=== PATIENT | male | born 1970 | race Caucasian/White ===

== ENCOUNTER 2021-11-01 11:51 | Inpatient (IN) | payer OTHER ==
[2021-11-01] MEDS ORDERED: IBUPROFEN 400 MG TABLET (FP) PO PRN (13:04)
[2021-11-01] MEDS ORDERED: METHOCARBAMOL 500 MG TABLET PO PRN (13:04)
[2021-11-01] MEDS ORDERED: NALOXONE HCL 0.4 MG/ML VIAL IM PRN (13:04)
[2021-11-01] MEDS ORDERED: cloNIDine HCL 0.1 MG TABLET PO PRN (13:04)
[2021-11-01] MEDS ORDERED: ACETAMINOPHEN 325 MG TABLET (FP) PO PRN (13:04)
[2021-11-01] MEDS ORDERED: MAGNESIUM CITRATE 300 ML BOTTLE PO PRN (13:04)
[2021-11-01] MEDS ORDERED: BISMUTH SUBSALICYLATE 524 MG/30 ML PO PRN (13:04)
[2021-11-01] MEDS ORDERED: MAG HYDROX/AL HYDROX/SIMETH 30 ML UNIT-DOSE CUP PO PRN (13:04)
[2021-11-01] MEDS ORDERED: LOPERAMIDE HCL 2 MG CAPSULE PO PRN (13:04)
[2021-11-01] MEDS ORDERED: MENTHOL/PHENOL 1 EACH UD MM PRN (13:04)
[2021-11-01] MEDS ORDERED: ONDANSETRON *ODT* 4 MG TABLET SL PRN (13:04)
[2021-11-01] MEDS ORDERED: DICYCLOMINE HCL 10 MG CAPSULE PO PRN (13:04)
[2021-11-01] MEDS ORDERED: methaDONE HCL 10 MG TABLET (FOR DETOX USE ONLY) PO ONE (13:30)
[2021-11-01 13:54] VITALS: BMI 27.3
[2021-11-01] MEDS: diazePAM 5 MG TABLET PO SCH ×2 (17:52→22:51)
[2021-11-01] MEDS: NICOTINE 10 MG CARTRIDGE (INHALER) IH PRN (17:54)
[2021-11-01] MEDS: NICOTINE 14 MG/24 HOURS TOPICAL PATCH TD SCH (17:58)
[2021-11-01] MEDS: BENZOCAINE 20 % GEL TUBE MM SCH ×2 (17:58→21:00)
[2021-11-01] MEDS: PRENATAL VITAMINS W/ FOLIC ACID TABLET (FP) PO SCH (17:58)
[2021-11-01] MEDS: hydrOXYzine PAMOATE 25 MG CAPSULE (FP) PO SCH ×3 (17:59→22:51)
[2021-11-01] MEDS: FLUTICASONE PROP 0.05% 16 GM NASAL SPRAY NS SCH (22:50)
[2021-11-01] MEDS: THIAMINE HCL 100 MG TABLET (FP) PO SCH (22:51)
[2021-11-01] MEDS: MELATONIN 5 MG TABLETS PO SCH (22:51)
[2021-11-02] MEDS: hydrOXYzine PAMOATE 25 MG CAPSULE (FP) PO SCH ×5 (06:05→22:57)
[2021-11-02] MEDS: diazePAM 5 MG TABLET PO SCH ×4 (06:05→22:57)
[2021-11-02] MEDS: BENZOCAINE 20 % GEL TUBE MM SCH ×4 (08:20→21:00)
[2021-11-02] MEDS ORDERED: methaDONE HCL 10 MG TABLET (FOR DETOX USE ONLY) ONE (08:54)
[2021-11-02 09:30] LABS: HEMATOCRIT 40.2 % (35.4-49); HEMOGLOBIN 13.3 GM/dL (11.7-16.9); MCH 28.7 pg (25.7-33.7); MCHC 33.2 g/dl (32.0-35.9); MEAN CELL VOLUME 86.5 fl (80-96); MEAN PLT VOLUME 8.8 fl (7.5-11.1); PLATELET COUNT 279 10^3/uL (134-434); RBC 4.65 M/mm3 (4.00-5.60); RDW 14.9 % (11.9-15.9); WHITE BLOOD COUNT 6.6 K/mm3 (4.0-10.0)
[2021-11-02 09:39] LABS: ALBUMIN 3.4 g/dl (3.4-5.0)
[2021-11-02 09:40] LABS: CALCIUM 8.8 mg/dL (8.5-10.1)
[2021-11-02 09:42] LABS: BLOOD UREA NITROGEN 7.7 mg/dL (7-18); CREATININE 0.8 mg/dL (0.55-1.3)
[2021-11-02 09:44] LABS: BILIRUBIN,TOTAL 0.2 mg/dL (0.2-1); TOT PROT 6.6 g/dl (6.4-8.2)
[2021-11-02] MEDS: FLUTICASONE PROP 0.05% 16 GM NASAL SPRAY NS SCH ×2 (10:31→22:56)
[2021-11-02] MEDS: PRENATAL VITAMINS W/ FOLIC ACID TABLET (FP) PO SCH (10:32)
[2021-11-02] MEDS: NICOTINE 14 MG/24 HOURS TOPICAL PATCH TD SCH (10:34)
[2021-11-02] MEDS: ALBUTEROL SO4 HFA INHALER IH PRN (12:32)
[2021-11-02] MEDS: THIAMINE HCL 100 MG TABLET (FP) PO SCH (22:57)
[2021-11-02] MEDS: MELATONIN 5 MG TABLETS PO SCH (22:57)
[2021-11-03] MEDS: BENZOCAINE 20 % GEL TUBE MM SCH ×4 (02:45→21:02)
[2021-11-03] MEDS: diazePAM 5 MG TABLET PO SCH ×3 (05:39→23:03)
[2021-11-03] MEDS: hydrOXYzine PAMOATE 25 MG CAPSULE (FP) PO SCH ×5 (05:39→23:03)
[2021-11-03] MEDS: ALBUTEROL SO4 HFA INHALER IH PRN ×3 (05:41→17:59)
[2021-11-03] MEDS ORDERED: methaDONE HCL 10 MG TABLET (FOR DETOX USE ONLY) PO ONE (10:00)
[2021-11-03] MEDS: FLUTICASONE PROP 0.05% 16 GM NASAL SPRAY NS SCH ×2 (10:18→23:02)
[2021-11-03] MEDS: PRENATAL VITAMINS W/ FOLIC ACID TABLET (FP) PO SCH (10:18)
[2021-11-03] MEDS: diazePAM 5 MG TABLET PO PRN ×2 (10:21→17:57)
[2021-11-03] MEDS: MAGNESIUM HYDROX 2400MG/30ML ORAL SUSPENSION 30 ML CUP PO PRN (10:21)
[2021-11-03] MEDS: NICOTINE 14 MG/24 HOURS TOPICAL PATCH TD SCH (10:24)
[2021-11-03 12:08] LABS: URINE APPEARANCE CLEAR; URINE BILIRUBIN NEGATIVE (NEGATIVE); URINE COLOR YELLOW; URINE GLUCOSE (UA) NEGATIVE (NEGATIVE); URINE KETONE NEGATIVE (NEGATIVE); URINE LEUK ESTERASE NEGATIVE (NEGATIVE); URINE NITRITE NEGATIVE (NEGATIVE); URINE PROTEIN NEGATIVE (NEGATIVE); URINE UROBILINOGEN 0.2 mg/dL (0.2-1.0)
[2021-11-03] MEDS: MELATONIN 5 MG TABLETS PO SCH (23:03)
[2021-11-03] MEDS: THIAMINE HCL 100 MG TABLET (FP) PO SCH (23:03)
[2021-11-04] MEDS: diazePAM 5 MG TABLET PO PRN ×2 (03:28→10:20)
[2021-11-04] MEDS: diazePAM 5 MG TABLET PO SCH ×2 (05:16→17:55)
[2021-11-04] MEDS: hydrOXYzine PAMOATE 25 MG CAPSULE (FP) PO SCH ×5 (05:16→22:09)
[2021-11-04] MEDS: BENZOCAINE 20 % GEL TUBE MM SCH ×4 (05:18→23:02)
[2021-11-04] MEDS: ACETAMINOPHEN 325 MG TABLET (FP) PO PRN ×2 (05:19→22:11)
[2021-11-04] MEDS ORDERED: methaDONE HCL 10 MG TABLET (FOR DETOX USE ONLY) ONE (09:16)
[2021-11-04] MEDS: FLUTICASONE PROP 0.05% 16 GM NASAL SPRAY NS SCH ×2 (10:16→22:09)
[2021-11-04] MEDS: NICOTINE 14 MG/24 HOURS TOPICAL PATCH TD SCH (10:17)
[2021-11-04] MEDS: ALBUTEROL SO4 HFA INHALER IH PRN ×2 (10:19→17:57)
[2021-11-04] MEDS: PRENATAL VITAMINS W/ FOLIC ACID TABLET (FP) PO SCH (10:20)
[2021-11-04] MEDS: THIAMINE HCL 100 MG TABLET (FP) PO SCH (22:09)
[2021-11-04] MEDS: MELATONIN 5 MG TABLETS PO SCH (22:09)
[2021-11-05] MEDS ORDERED: diazePAM 5 MG TABLET PO ONE ×2 (06:00→18:00)
[2021-11-05] MEDS: BENZOCAINE 20 % GEL TUBE MM SCH ×4 (06:52→21:39)
[2021-11-05] MEDS: hydrOXYzine PAMOATE 25 MG CAPSULE (FP) PO SCH ×5 (06:52→22:34)
[2021-11-05] MEDS ORDERED: methaDONE HCL 10 MG TABLET (FOR DETOX USE ONLY) PO ONE (10:00)
[2021-11-05] MEDS: PRENATAL VITAMINS W/ FOLIC ACID TABLET (FP) PO SCH (11:26)
[2021-11-05] MEDS: FLUTICASONE PROP 0.05% 16 GM NASAL SPRAY NS SCH ×2 (11:27→22:35)
[2021-11-05] MEDS: NICOTINE 14 MG/24 HOURS TOPICAL PATCH TD SCH (11:27)
[2021-11-05] MEDS: ACETAMINOPHEN 325 MG TABLET (FP) PO PRN (11:36)
[2021-11-05] MEDS ORDERED: TRIMETHOBENZAMIDE HCL 200MG/2ML INJ IM PRN (13:31)
[2021-11-05] MEDS ORDERED: cloNIDine HCL 0.1 MG TABLET PO ONE (14:45)
[2021-11-05] MEDS ORDERED: hydrOXYzine PAMOATE 50 MG CAPSULE (FP) PO ONE (14:46)
[2021-11-05] MEDS ORDERED: hydrOXYzine PAMOATE 25 MG CAPSULE (FP) PO PRN (22:00)
[2021-11-05] MEDS: MELATONIN 5 MG TABLETS PO SCH (22:33)
[2021-11-05] MEDS: THIAMINE HCL 100 MG TABLET (FP) PO SCH (22:34)
[2021-11-06] MEDS: BENZOCAINE 20 % GEL TUBE MM SCH ×2 (07:17→09:23)
[2021-11-06] MEDS: hydrOXYzine PAMOATE 25 MG CAPSULE (FP) PO SCH ×5 (07:18→22:13)
[2021-11-06] MEDS ORDERED: methaDONE HCL 10 MG TABLET (FOR DETOX USE ONLY) PO ONE (10:00)
[2021-11-06] MEDS: PRENATAL VITAMINS W/ FOLIC ACID TABLET (FP) PO SCH (10:19)
[2021-11-06] MEDS: diazePAM 5 MG TABLET PO SCH ×2 (10:20→22:12)
[2021-11-06] MEDS: NICOTINE 14 MG/24 HOURS TOPICAL PATCH TD SCH (10:21)
[2021-11-06] MEDS: FLUTICASONE PROP 0.05% 16 GM NASAL SPRAY NS SCH ×2 (10:24→22:14)
[2021-11-06 12:29] LABS: CALCIUM 8.8 mg/dL (8.5-10.1)
[2021-11-06 12:30] LABS: BLOOD UREA NITROGEN 14.7 mg/dL (7-18)
[2021-11-06 12:33] LABS: CREATININE 0.9 mg/dL (0.55-1.3)
[2021-11-06 15:07] LABS: SARS-CoV-2 NAA Not Detected (Not Detected)
[2021-11-06] MEDS ORDERED: diazePAM 5 MG TABLET PO SCH (22:00)
[2021-11-06] MEDS: THIAMINE HCL 100 MG TABLET (FP) PO SCH (22:13)
[2021-11-06] MEDS: MELATONIN 5 MG TABLETS PO SCH (22:13)
[2021-11-07] MEDS: hydrOXYzine PAMOATE 25 MG CAPSULE (FP) PO SCH ×2 (05:22→10:14)
[2021-11-07] MEDS ORDERED: diazePAM 5 MG TABLET PO ONE (06:00)
[2021-11-07] MEDS: FLUTICASONE PROP 0.05% 16 GM NASAL SPRAY NS SCH ×2 (10:14→21:08)
[2021-11-07] MEDS: PRENATAL VITAMINS W/ FOLIC ACID TABLET (FP) PO SCH (10:14)
[2021-11-07] MEDS: NICOTINE 14 MG/24 HOURS TOPICAL PATCH TD SCH (10:15)
[2021-11-07] MEDS: THIAMINE HCL 100 MG TABLET (FP) PO SCH (21:06)
[2021-11-07] MEDS: MELATONIN 5 MG TABLETS PO SCH (21:06)
[2021-11-07] MEDS: cloNIDine HCL 0.1 MG TABLET PO PRN (21:07)
[2021-11-07] MEDS: ALBUTEROL SO4 HFA INHALER IH PRN (21:09)
[2021-11-08] MEDS: FLUTICASONE PROP 0.05% 16 GM NASAL SPRAY NS SCH ×2 (09:44→21:36)
[2021-11-08] MEDS: NICOTINE 14 MG/24 HOURS TOPICAL PATCH TD SCH (09:44)
[2021-11-08] MEDS: PRENATAL VITAMINS W/ FOLIC ACID TABLET (FP) PO SCH (09:45)
[2021-11-08] MEDS: MELATONIN 5 MG TABLETS PO SCH (21:36)
[2021-11-08] MEDS: THIAMINE HCL 100 MG TABLET (FP) PO SCH (21:36)
[2021-11-08] MEDS: cloNIDine HCL 0.1 MG TABLET PO PRN (21:38)
[2021-11-09] MEDS: NICOTINE 14 MG/24 HOURS TOPICAL PATCH TD SCH (09:32)
[2021-11-09] MEDS: FLUTICASONE PROP 0.05% 16 GM NASAL SPRAY NS SCH ×2 (09:32→21:55)
[2021-11-09] MEDS: PRENATAL VITAMINS W/ FOLIC ACID TABLET (FP) PO SCH (09:33)
[2021-11-09] MEDS ORDERED: ALBUTEROL SO4 HFA INHALER IH PRN (15:45)
[2021-11-09] MEDS: BUPRENORPHINE/NALOXONE 4 MG/1 MG FILM PACKET SL SCH (16:10)
[2021-11-09] MEDS: MELATONIN 5 MG TABLETS PO SCH (21:54)
[2021-11-09] MEDS: THIAMINE HCL 100 MG TABLET (FP) PO SCH (21:55)
[2021-11-09] MEDS: hydrOXYzine PAMOATE 25 MG CAPSULE (FP) PO PRN (21:55)
[2021-11-09] MEDS: cloNIDine HCL 0.1 MG TABLET PO PRN (21:56)
[2021-11-10] MEDS: BUPRENORPHINE/NALOXONE 4 MG/1 MG FILM PACKET SL SCH (10:41)
[2021-11-10] MEDS: PRENATAL VITAMINS W/ FOLIC ACID TABLET (FP) PO SCH (10:41)
[2021-11-10] MEDS: NICOTINE 14 MG/24 HOURS TOPICAL PATCH TD SCH (10:41)
[2021-11-10] MEDS: FLUTICASONE PROP 0.05% 16 GM NASAL SPRAY NS SCH ×2 (10:41→21:37)
[2021-11-10] MEDS: NICOTINE 10 MG CARTRIDGE (INHALER) IH PRN ×2 (12:39→17:28)
[2021-11-10] MEDS ORDERED: BUPRENORPHINE/NALOXONE 4 MG/1 MG FILM PACKET SL ONE (13:30)
[2021-11-10] MEDS: THIAMINE HCL 100 MG TABLET (FP) PO SCH (21:35)
[2021-11-10] MEDS: MELATONIN 5 MG TABLETS PO SCH (21:35)
[2021-11-10] MEDS: ALBUTEROL SO4 HFA INHALER IH PRN (21:35)
[2021-11-10] MEDS: cloNIDine HCL 0.1 MG TABLET PO PRN (21:37)
[2021-11-10] MEDS: hydrOXYzine PAMOATE 25 MG CAPSULE (FP) PO PRN (21:38)
[2021-11-11] MEDS ORDERED: BUPRENORPHINE/NALOXONE 8 MG/2 MG FILM PACKET SL SCH (06:00)
[2021-11-11 10:07] LABS: SARS-CoV-2 NAA Not Detected (Not Detected)
[2021-11-11] MEDS: NICOTINE 14 MG/24 HOURS TOPICAL PATCH TD SCH (10:28)
[2021-11-11] MEDS: NICOTINE 10 MG CARTRIDGE (INHALER) IH PRN (10:28)
[2021-11-11] MEDS: PRENATAL VITAMINS W/ FOLIC ACID TABLET (FP) PO SCH (10:28)
[2021-11-11] MEDS: BUPRENORPHINE/NALOXONE 8 MG/2 MG FILM PACKET SL SCH (10:29)
[2021-11-11] MEDS: FLUTICASONE PROP 0.05% 16 GM NASAL SPRAY NS SCH ×2 (10:31→21:37)
[2021-11-11] MEDS: ALBUTEROL SO4 HFA INHALER IH PRN (15:32)
[2021-11-11] MEDS: MELATONIN 5 MG TABLETS PO SCH (21:37)
[2021-11-11] MEDS: THIAMINE HCL 100 MG TABLET (FP) PO SCH (21:37)
[2021-11-11] MEDS: cloNIDine HCL 0.1 MG TABLET PO PRN (21:37)
[2021-11-12] MEDS: NICOTINE 14 MG/24 HOURS TOPICAL PATCH TD SCH (09:09)
[2021-11-12] MEDS: FLUTICASONE PROP 0.05% 16 GM NASAL SPRAY NS SCH ×2 (09:09→21:17)
[2021-11-12] MEDS: PRENATAL VITAMINS W/ FOLIC ACID TABLET (FP) PO SCH (09:10)
[2021-11-12] MEDS: BUPRENORPHINE/NALOXONE 8 MG/2 MG FILM PACKET SL SCH (09:10)
[2021-11-12] MEDS: NICOTINE 10 MG CARTRIDGE (INHALER) IH PRN ×2 (09:11→16:25)
[2021-11-12] MEDS: cloNIDine HCL 0.1 MG TABLET PO PRN (21:17)
[2021-11-12] MEDS: MELATONIN 5 MG TABLETS PO SCH (21:17)
[2021-11-12] MEDS: THIAMINE HCL 100 MG TABLET (FP) PO SCH (21:17)
[2021-11-12] MEDS: hydrOXYzine PAMOATE 25 MG CAPSULE (FP) PO PRN (21:17)
[2021-11-13] MEDS: FLUTICASONE PROP 0.05% 16 GM NASAL SPRAY NS SCH ×2 (10:21→21:39)
[2021-11-13] MEDS: BUPRENORPHINE/NALOXONE 8 MG/2 MG FILM PACKET SL SCH (10:21)
[2021-11-13] MEDS: NICOTINE 14 MG/24 HOURS TOPICAL PATCH TD SCH (10:22)
[2021-11-13] MEDS: PRENATAL VITAMINS W/ FOLIC ACID TABLET (FP) PO SCH (10:23)
[2021-11-13] MEDS ORDERED: SIMETHICONE 80 MG TAB.CHEW (FP) PO PRN (14:06)
[2021-11-13] MEDS: NICOTINE 10 MG CARTRIDGE (INHALER) IH PRN ×2 (14:14→18:15)
[2021-11-13] MEDS: MAGNESIUM HYDROX 2400MG/30ML ORAL SUSPENSION 30 ML CUP PO PRN (19:47)
[2021-11-13] MEDS: hydrOXYzine PAMOATE 25 MG CAPSULE (FP) PO PRN (21:38)
[2021-11-13] MEDS: THIAMINE HCL 100 MG TABLET (FP) PO SCH (21:38)
[2021-11-13] MEDS: MELATONIN 5 MG TABLETS PO SCH (21:38)
[2021-11-13] MEDS: ALBUTEROL SO4 HFA INHALER IH PRN (21:39)
[2021-11-14 06:46] VITALS: TEMP 97.3
[2021-11-14] MEDS: NICOTINE 10 MG CARTRIDGE (INHALER) IH PRN ×3 (08:55→16:41)
[2021-11-14] MEDS: NICOTINE 14 MG/24 HOURS TOPICAL PATCH TD SCH (10:21)
[2021-11-14] MEDS: PRENATAL VITAMINS W/ FOLIC ACID TABLET (FP) PO SCH (10:21)
[2021-11-14] MEDS: BUPRENORPHINE/NALOXONE 8 MG/2 MG FILM PACKET SL SCH (10:21)
[2021-11-14] MEDS: FLUTICASONE PROP 0.05% 16 GM NASAL SPRAY NS SCH ×2 (10:21→21:34)
[2021-11-14] MEDS: MAGNESIUM HYDROX 2400MG/30ML ORAL SUSPENSION 30 ML CUP PO PRN (11:08)
[2021-11-14] MEDS: MELATONIN 5 MG TABLETS PO SCH (21:32)
[2021-11-14] MEDS: THIAMINE HCL 100 MG TABLET (FP) PO SCH (21:32)
[2021-11-14] MEDS: cloNIDine HCL 0.1 MG TABLET PO PRN (21:33)
[2021-11-14] MEDS: ALBUTEROL SO4 HFA INHALER IH PRN (21:35)
[2021-11-15] MEDS: NICOTINE 10 MG CARTRIDGE (INHALER) IH PRN ×2 (09:01→15:53)
[2021-11-15] MEDS: NICOTINE 14 MG/24 HOURS TOPICAL PATCH TD SCH (09:02)
[2021-11-15] MEDS: PRENATAL VITAMINS W/ FOLIC ACID TABLET (FP) PO SCH (09:02)
[2021-11-15] MEDS: FLUTICASONE PROP 0.05% 16 GM NASAL SPRAY NS SCH (09:02)
[2021-11-15] MEDS: BUPRENORPHINE/NALOXONE 8 MG/2 MG FILM PACKET SL SCH (09:03)
[2021-11-15 09:15] VITALS: BP 119/66; PULSE 70
[2021-11-15] MEDS ORDERED: SODIUM PHOSPHATE/NA BIPHOS 133 ML ENEMA RC ONE (09:59)
[2021-11-15] MEDS ORDERED: BUPRENORPHINE/NALOXONE 8 MG/2 MG FILM PACKET SL SCH (18:00)
== END 2021-11-15 17:15 | disposition home or self-care (01) | DRG 895 ==
LOC: YASAS 11:51 → Y3N 14:56 → Y3E 11-07 11:44
PROVIDERS: ADMIT Allergy & Immunology; ATTEND Allergy & Immunology
PROC: HZ2ZZZZ Detoxification Services for Substance Abuse Treatment (ICD-10-PCS; principal; 2021-11-01)
PROC: HZ42ZZZ Group Counseling for Substance Abuse Treatment, Cognitive-Behavioral (ICD-10-PCS; 2021-11-06)
DX: F11.23 Opioid dependence with withdrawal (principal); F14.20 Cocaine dependence, uncomplicated; F10.230 Alcohol dependence with withdrawal, uncomplicated; F13.230 Sedative, hypnotic or anxiolytic dependence with withdrawal, uncomplicated; F12.20 Cannabis dependence, uncomplicated; F17.210 Nicotine dependence, cigarettes, uncomplicated; F25.9 Schizoaffective disorder, unspecified; F41.9 Anxiety disorder, unspecified; F31.9 Bipolar disorder, unspecified; J45.909 Unspecified asthma, uncomplicated; M54.59 Other low back pain; G89.29 Other chronic pain; Z28.310 Unvaccinated for COVID-19; Z88.0 Allergy status to penicillin; Z56.0 Unemployment, unspecified; Z59.00 Homelessness unspecified
CPT/HCPCS: 36415; 80048; 80053; 81003; 82947; 83036; 85027; 86780; 93005; 93010; C9803-CS; J0735; Q0162; U0003; U0005